=== PATIENT | male | born 2000 | race Two or more races ===

== ENCOUNTER 2024-12-28 20:20 | Emergency (ER) | payer BC ==
[~2024-12-28] VITALS: Ht 193 cm; Wt 85.7 kg
[2024-12-28 21:02] LABS: *BILIRUBIN,URIN NEGATIVE (NEGATIVE); *BLOOD, URINE NEGATIVE (NEGATIVE); *CLARITY,URINE CLEAR (CLEAR); *COLOR,URINE YELLOW (YELLOW); *KETONES,URINE NEGATIVE (NEGATIVE); *PROTEIN,URINE NEGATIVE (NEGATIVE); *UROBILINOGEN,URINE 0.2 E.U./dl (NORMAL); LEUKOCYTE ESTERASE ,URINE NEGATIVE (NEGATIVE); NITRITE, URINE NEGATIVE (NEGATIVE); UGLUCOSE NEGATIVE (NEGATIVE)
[2024-12-28 21:29] LABS: *AMPHETAMINE, URINE NEGATIVE (NEGATIVE); *BARBITURATE, URINE NEGATIVE (NEGATIVE); *BENZODIAZEPINE, URINE NEGATIVE (NEGATIVE); *CANNABINOID, URINE NEGATIVE (NEGATIVE); *COCCAINE, URINE NEGATIVE (NEGATIVE); *OPIATE, URINE NEGATIVE (NEGATIVE); *PHENCYCLIDINE SCREEN,URINE NEGATIVE (NEGATIVE); FENTANYL, URINE NEGATIVE (NEGATIVE)
[2024-12-28 22:46] VITALS: BP 125/70; TEMP 98; O2SAT 98
== END 2024-12-28 22:48 | disposition home or self-care (01) ==
LOC: ER 20:30
DX: N50.89 Other specified disorders of the male genital organs (principal); Z79.899 Other long term (current) drug therapy
CPT/HCPCS: 76870; A4606; A4663